=== PATIENT | female | born 1970 | race Caucasian/White ===

== ENCOUNTER → 2018-05-26 | Outpatient (CLI) | payer BC ==
--- NOTE | 2018-05-26 10:23 | REP ---
Left tib-fib series: Two views. History: Contusion. Findings: There is a obliquely oriented distal fibular dye metaphyseal zone fracture. No proximal fibular or tibial fracture is visible. Bones joints and soft tissues are otherwise unremarkable. Impression: Distal fibular fracture. 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 No other fracture seen. Electronically Signed by Atul Higgins MD 05/26/2018 10:15 A
--- NOTE | 2018-05-26 10:59 | REP ---
LEFT ANKLE SERIES: Four views. HISTORY: Contusion. FINDINGS: There is an obliquely oriented nondisplaced fracture of the distal fibular royal metaphyseal zone with associated soft-tissue swelling. Ankle mortise is intact. An old accessory ossicle is seen adjacent the medial malleolus. No tibial fracture is visible. Plantar calcaneal spurring is noted. There is mild talonavicular joint spurring as well. IMPRESSION: Distal fibular fracture. 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 Electronically Signed by Atul Higgins MD 05/26/2018 04:20 P
== END ==
LOC: M WUC 09:50
PROVIDERS: ATTEND Physician Assistant
DX: S89.302A Unspecified physeal fracture of lower end of left fibula, initial encounter for closed fracture (principal); S90.02XA Contusion of left ankle, initial encounter; M77.32 Calcaneal spur, left foot; X58.XXXA Exposure to other specified factors, initial encounter; Y92.9 Unspecified place or not applicable

== ENCOUNTER → 2018-08-04 | Outpatient (REF) | payer BC | LOC: M LABDRAW1 16:04 | PROVIDERS: ATTEND Orthopaedic Surgery | DX: S82.65XK Nondisplaced fracture of lateral malleolus of left fibula, subsequent encounter for closed fracture with nonunion (principal) ==

== ENCOUNTER → 2019-01-30 | Outpatient (REF) | payer BC ==
[2019-01-30 14:43] LABS: ALBUMIN 3.5 GM/DL (3.2-5.2); ALT/SGPT 28 U/L (12-78); BILIRUBIN,TOTAL 0.5 MG/DL (0.2-1.0); BLOOD UREA NITROGEN 6 MG/DL (7-18); CALCIUM LEVEL 9.2 MG/DL (8.5-10.1); CARBON DIOXIDE LEVEL 32 MEQ/L (21-32); CHLORIDE LEVEL 103 MEQ/L (98-107); GLOMERULAR FILTRATION RATE > 60.0 (>51); GLUCOSE, FASTING 91 MG/DL (70-100); POTASSIUM SERUM 4.2 MEQ/L (3.5-5.1); PTH INTACT 85.9 PG/ML (18.5-88.0); SODIUM LEVEL 140 MEQ/L (136-145); TOTAL 25(OH) VITAMIN D 19.8 NG/ML (30.0-100.0); TOTAL PROTEIN 6.9 GM/DL (6.4-8.2)
== END ==
LOC: M LABDRAW1 13:49
PROVIDERS: ATTEND Internal Medicine Endocrinology, Diabetes & Metabolism
DX: M83.8 Other adult osteomalacia (principal)